=== PATIENT | female | born 1980 | race African-American/Black ===

== ENCOUNTER 2017-07-14 15:25 | Inpatient (IN) | payer BC ==
[2017-07-14] MEDS ORDERED: Ondansetron 4 MG/2 ML SDV IVPUSH PRN (15:27)
[2017-07-14] MEDS ORDERED: Sodium Chloride 0.9% 10 ML Syringe FLUSH PRN (15:27)
[2017-07-14] MEDS ORDERED: Nalbuphine 20 MG/1 ML Amp IVPUSH PRN (15:27)
[2017-07-14] MEDS ORDERED: Lidocaine 1% 50 ML MDV INJECT ONE (15:27)
[2017-07-14] MEDS ORDERED: Oxytocin/Lactated Ringers 10 UNIT/1,000 ML BAG IV SCH (15:30)
[2017-07-14] MEDS ORDERED: Lactated Ringers 1,000 ML IV SCH (15:30)
[2017-07-14] MEDS ORDERED: Lidocaine 1% 50 ML MDV ONE (16:10)
[2017-07-14] MEDS ORDERED: Lidocaine 1% 50 ML MDV INFILT STA (16:30)
--- NOTE | 2017-07-14 16:32 | PCM.LDHP ---
L&D History of Present Illness - General Date of Service: 07/14/17 Admit Problem/Dx: Patient Status Order with Admit Dx/Problem 07/14/17 15:27 Patient Status [ADT] Routine Admission Diagnosis/Problem Admission Diagnosis/Problem Normal labor Source of Information: Patient History Limitations: Reports: No Limitations - History of Present Illness Introduction:: Patient is a 36 y/o at 37 5/7 wks presents in labor. Was seen in clinic and found to be 7 cm. Sent immediately to L&D. Otherwise doing well. - Related Data Allergies/Adverse Reactions: Allergies Allergy/AdvReac Type Severity Reaction Status Date / Time clindamycin Allergy Diarrhea Verified 07/14/17 15:25 Past Medical History - Past Health History Medical/Surgical History: Denies Medical/Surgical History [employer] History: Reports: : 1 Para: 0 LMP (Approximate): Social & Family History - Tobacco Use Smoking Status *Q: Never Smoker - Alcohol Use Alcohol Use History: No - Recreational Drug Use Recreational Drug Use: No H&P Review of Systems - Review of Systems: Review Of Systems: See Below General: Reports: No Symptoms Pulmonary: Reports: No Symptoms Cardiovascular: Reports: No Symptoms Gastrointestinal: Reports: No Symptoms Genitourinary: Reports: No Symptoms Musculoskeletal: Reports: No Symptoms Psychiatric: Reports: No Symptoms Neurological: Reports: No Symptoms L&D Exam - Exam Exam: See Below - Vital Signs Weight: 68.674 kg - OB Specific Contraction Intensity: Strong Movement: Active Heart Tones: Present Heart Tones per Min: 150 Heart Rate (FHR) Variability: Moderate (6-25 bmp) Presentation: Vertex - Cruz Score Cruz Score Cervix Position: Anterior Cruz Score Consistency: Soft Cruz Score Effacement: >80% Cruz Score Dilation: > 5 cm Cruz Score Infant's Station: -1 ,0 Cruz Score Total: 12 - Exam General: Alert, Oriented, Cooperative Lungs: Clear to Auscultation, Normal Respiratory Effort Cardiovascular: Regular Rate, Regular Rhythm GI/Abdominal Exam: Soft, Non-Tender Genitourinary: Normal external exam Back Exam: Normal Inspection Extremities: Normal Inspection Skin: Warm, Dry, Intact - Patient Data Lab Results Last 24 hrs: Laboratory Results - last 24 hr 07/14/17 Range/Units 15:46 WBC 9.87 (3.98-10.04) K/mm3 RBC 5.65 H (3.98-5.22) M/mm3 Hgb 13.3 (11.2-15.7) gm/L Hct 41.6 (34.1-44.9) % MCV 73.6 L (79.4-94.8) fl MCH 23.5 L (25.6-32.2) pg MCHC 32.0 L (32.2-35.5) g/dl RDW Std Deviation 69.3 H (36.4-46.3) fL Plt Count 226 (182-369) K/mm3 MPV TNP Neut % (Auto) 78.6 H (34.0-71.1) % Lymph % (Auto) 14.5 L (19.3-51.7) % [place] % (Auto) 6.5 (4.7-12.5) % Eos % (Auto) 0 L (0.7-5.8) Baso % (Auto) 0.1 (0.1-1.2) % Neut # (Auto) 7.76 H (1.56-6.13) K/mm3 Lymph # (Auto) 1.43 (1.18-3.74) K/mm3 [place] # (Auto) 0.64 H (0.24-0.36) K/mm3 Eos # (Auto) 0.00 L (0.04-0.36) K/mm3 Baso # (Auto) 0.01 (0.01-0.08) K/mm3 Manual Slide Review Abnormal smear Result Diagrams: 07/14/17 15:46 - Problem List (1) 37 weeks gestation of SNOMED Code(s): 29771623 ICD Code: Z3A.37 - 37 WEEKS GESTATION OF Status: Acute Current Visit: Yes (2) Normal labor SNOMED Code(s): 09413951 ICD Code: O80 - ENCOUNTER FOR FULL-TERM UNCOMPLICATED DELIVERY; Z37.9 - OUTCOME OF DELIVERY, UNSPECIFIED Status: Acute Current Visit: Yes Problem List Initiated/Reviewed/Updated: Yes Orders Last 24hrs: Active Orders 24 hr Category Date Time Status Patient Status [ADT] Routine ADT 07/14/17 15:27 Active Activity as Tolerated [RC] PFP Care 07/14/17 15:27 Active Communication Order [RC] ASDIRECTED Care 07/14/17 15:27 Active Heart Tones [RC] ASDIRECTED Care 07/14/17 15:27 Active Notify Provider [RC] PFP Care 07/14/17 15:27 Active Notify Provider [RC] PRN Care 07/14/17 15:27 Active Peripheral IV Care [RC] . DIRECTED Care 07/14/17 15:27 Active Vital Signs [RC] PER UNIT ROUTINE Care 07/14/17 15:27 Active Regular Diet [DIET] Diet 07/14/17 Dinner Active Lactated Ringers [Ringers, Lactated] 1,000 ml Med 07/14/17 15:30 Active IV ASDIRECTED Lidocaine 1% [Xylocaine 1%] Med 07/14/17 16:30 Stat 50 ml INFILT NOW STA Nalbuphine [Nubain] Med 07/14/17 15:27 Active 10 mg IVPUSH Q2H PRN Ondansetron [Zofran] Med 07/14/17 15:27 Active 4 mg IVPUSH Q4H PRN Oxytocin/Lactated Ringers [Pitocin in LR 10 Units/1,000 Med 07/14/17 15:30 Active ML] 10 unit in 1,000 ml IV .CONTINUOUS Sodium Chloride 0.9% [Saline Flush] Med 07/14/17 15:27 Active 10 ml FLUSH ASDIRECTED PRN Electronic Heart Tones Ext w TOCO [WOMSER] Oth 07/14/17 15:27 Ordered Routine Electronic Heart Tones Internal [WOMSER] Per Unit Oth 07/14/17 15:27 Ordered Routine Peripheral IV Insertion Adult [OM.PC] Routine Oth 07/14/17 15:27 Ordered Resuscitation Status Routine Resus Stat 07/14/17 15:27 Ordered Medication Orders Lactated Ringer's (Ringers, Lactated) 1,000 mls @ 100 mls/hr IV ASDIRECTED KAILEY Oxytocin/Lactated Ringer's (Pitocin In Lr 10 Units/1,000 Ml) 10 unit in 1,000 mls @ 500 mls/hr IV .CONTINUOUS KAILEY Nalbuphine HCl (Nubain) 10 mg IVPUSH Q2H PRN PRN Reason: Pain (moderate 4-6) Ondansetron HCl (Zofran) 4 mg IVPUSH Q4H PRN PRN Reason: Nausea/Vomiting Sodium Chloride (Saline Flush) 10 ml FLUSH ASDIRECTED PRN PRN Reason: Keep Vein Open Assessment/Plan Comment:: 36 y/o at 37 5/7 wks presents in advanced labor * CBC and T&S * GBS negative * Anticipate
[2017-07-14] MEDS ORDERED: Benzocaine/Menthol 20%-0.5% Spray 56 GM Canister TOP PRN (16:45)
[2017-07-14] MEDS ORDERED: Docusate Sodium 100 MG Cap PO PRN (16:45)
[2017-07-14] MEDS ORDERED: Lanolin 100% Cream 7 GM Tube TOP PRN (16:45)
--- NOTE | 2017-07-14 16:50 | PCM.DEL ---
L & D Note - General Info Date of Service: 07/14/17 - Delivery Note Labor: Spontaneous Delivery Outcome: Livebirth Delivery Method: Spontaneous Vaginal Delivery-Single Delivery Mode: Vacuum Extraction Presentation: Right Occiput Anterior (DAHLIA) Nuchal Cord: None Anesthesia Type: None Amniotic Fluid Description: Clear Episiotomy Type: None Laceration: 2nd Degree, Perineal Suture type: Vicryl Suture size: 2-0 Placenta: Intact, Spontaneous Cord: 3 Vessels Estimated Blood Loss: 300 Resuscitation Needed: Yes : Suctioned, Bulb Syringe, Stimulated, Warmed, [place] Used, Warmer Used Score 1 min: 5 Score 5 min: 8 Delivery Comments (Free Text/Narrative):: Patient found to be complete with BOW protruding past vagina onto bed. ROM occurred and after this baby with FHR baseline shift from 135 into what was thought to be the 100's with decelerations into the 80's. She was encouraged to push, but was pushing ineffectively due to pain. Due to concern for prolonged time period with this lower baseline/decelerations decision made to proceed with VAVD. Sterile vaginal exam complete/complete/and scalp visible at introitus. head in DAHLIA presentation. Given concern for status the decision was made to proceed with vacuum assisted vaginal delivery. The mushroom cup was placed without difficulty with care to avoid the vaginal side wilson. Subsequent vacuum assisted vaginal delivery with pushing - applied for 1 minute and delivered over 1 contraction. Total pressure applied 550 mm Hg. Total pop offs 0. Suction was removed following delivery of the head. No nuchal cord. The remainder of the delivered without difficulty. The umbilical cord was clamped and cut and the infant was taken to warmer. Inspection of the perineum following delivery with findings of a 2nd degree laceration. This was repaired with a 2-0 vicryl in the typical fashion Vacuum Extractor Progress Note - Alternative Labor Strategies Considered Alternative Labor Strategies Considered:: Reports: Yes Indications Considered:: Reports: Yes Indications:: Reports: Suspicion of Immediate or Potential Compromise Time Out:: Reports: Yes - Patient Prepared Patient Prepared:: Reports: Yes Informed Consent:: Reports: Verbal Risks: Reports: Yes Risks Include:: Reports: Laceration, Shoulder Dystocia, Maternal Injury, Other Anesthesia/Analgesia Adequate:: Reports: No - Probability of Success High Probability of Success:: Reports: Yes Weight Estimated:: Reports: AGA Patient Diabetic:: Reports: No Pelvis Adequate:: Reports: No Asynclitic:: Reports: No - Application Time Maximum Application Time & Number of Pop-Offs Predetermined:: Reports: Yes Maximum Pressure Maintained in [place] (cm Hg):: 550 Total Application Time (min): *max=20min: 1 Number of Times Cup Disengaged:: 0 Type of Vacuum Used:: Reports: Cup: Mushroom type Vacuum Extraction: Successful - Exit Strategy Exit strategy available:: Reports: Yes and resuscitation teams readily available:: Reports: Yes - Patient Data Weight - Most Recent: 68.674 kg Lab Results Last 24 Hours: Laboratory Results - last 24 hr 07/14/17 Range/Units 15:46 WBC 9.87 (3.98-10.04) K/mm3 RBC 5.65 H (3.98-5.22) M/mm3 Hgb 13.3 (11.2-15.7) gm/L Hct 41.6 (34.1-44.9) % MCV 73.6 L (79.4-94.8) fl MCH 23.5 L (25.6-32.2) pg MCHC 32.0 L (32.2-35.5) g/dl RDW Std Deviation 69.3 H (36.4-46.3) fL Plt Count 226 (182-369) K/mm3 MPV TNP Neut % (Auto) 78.6 H (34.0-71.1) % Lymph % (Auto) 14.5 L (19.3-51.7) % [place] % (Auto) 6.5 (4.7-12.5) % Eos % (Auto) 0 L (0.7-5.8) Baso % (Auto) 0.1 (0.1-1.2) % Neut # (Auto) 7.76 H (1.56-6.13) K/mm3 Lymph # (Auto) 1.43 (1.18-3.74) K/mm3 [place] # (Auto) 0.64 H (0.24-0.36) K/mm3 Eos # (Auto) 0.00 L (0.04-0.36) K/mm3 Baso # (Auto) 0.01 (0.01-0.08) K/mm3 Manual Slide Review Abnormal smear Med Orders - Current: Current Medications Lactated Ringer's (Ringers, Lactated) 1,000 mls @ 100 mls/hr IV ASDIRECTED KAILEY Last Admin: 07/14/17 15:50 Dose: 100 mls/hr Oxytocin/Lactated Ringer's (Pitocin In Lr 10 Units/1,000 Ml) 10 unit in 1,000 mls @ 500 mls/hr IV .CONTINUOUS KAILEY Last Admin: 07/14/17 16:43 Dose: 500 mls/hr Nalbuphine HCl (Nubain) 10 mg IVPUSH Q2H PRN PRN Reason: Pain (moderate 4-6) Ondansetron HCl (Zofran) 4 mg IVPUSH Q4H PRN PRN Reason: Nausea/Vomiting Sodium Chloride (Saline Flush) 10 ml FLUSH ASDIRECTED PRN PRN Reason: Keep Vein Open Discontinued Medications Lidocaine HCl (Xylocaine 1%) 50 ml INJECT ONETIME ONE Stop: 07/14/17 15:28 Last Admin: 07/14/17 16:44 Dose: 50 ml Lidocaine HCl (Xylocaine 1%) Confirm Administered Dose 50 ml .ROUTE .STK-MED ONE Stop: 07/14/17 16:11 Lidocaine HCl (Xylocaine 1%) 50 ml INFILT NOW STA Stop: 07/14/17 16:31 - Problem List & Annotations (1) 37 weeks gestation of SNOMED Code(s): 08673268 Code(s): Z3A.37 - 37 WEEKS GESTATION OF Status: Acute Current Visit: Yes (2) Normal labor SNOMED Code(s): 78168055 Code(s): O80 - ENCOUNTER FOR FULL-TERM UNCOMPLICATED DELIVERY; Z37.9 - OUTCOME OF DELIVERY, UNSPECIFIED Status: Acute Current Visit: Yes (3) Vacuum extractor delivery, delivered SNOMED Code(s): 336294773 Code(s): O66.5 - ATTEMPTED APPLICATION OF VACUUM EXTRACTOR AND FORCEPS Status: Acute Current Visit: Yes - Problem List Review Problem List Initiated/Reviewed/Updated: Yes - My Orders Last 24 Hours: My Active Orders 07/14/17 15:27 Patient Status [ADT] Routine Activity as Tolerated [RC] PFP Communication Order [RC] ASDIRECTED Heart Tones [RC] ASDIRECTED Notify Provider [RC] PFP Notify Provider [RC] PRN Peripheral IV Care [RC] . DIRECTED Vital Signs [RC] PER UNIT ROUTINE Nalbuphine [Nubain] 10 mg IVPUSH Q2H PRN Ondansetron [Zofran] 4 mg IVPUSH Q4H PRN Sodium Chloride 0.9% [Saline Flush] 10 ml FLUSH ASDIRECTED PRN Electronic Heart Tones Ext w TOCO [WOMSER] Routine Electronic Heart Tones Internal [WOMSER] Per Unit Routine Peripheral IV Insertion Adult [OM.PC] Routine Resuscitation Status Routine 07/14/17 15:30 Lactated Ringers [Ringers, Lactated] 1,000 ml IV ASDIRECTED Oxytocin/Lactated Ringers [Pitocin in LR 10 Units/1,000 ML] 10 unit in 1,000 ml IV .CONTINUOUS 07/14/17 16:40 Patient Status Manage Transfer [TRANSFER] Routine 07/14/17 Dinner Regular Diet [DIET] - Assessment Assessment:: 36 y/o G1 now P1001 PPD#0 from VAVD at 37 5/7 wks - Plan Plan:: * Routine cares * Encourage breast feeding * Discharge home in 1-2 days
[2017-07-14] MEDS: Ibuprofen 600 MG Tab PO PRN (16:56)
[2017-07-14] MEDS: Witch Hazel Medicated Pads 100/Jar TOP PRN (16:57)
[2017-07-14] MEDS: Acetaminophen 325 MG Tab PO PRN (21:31)
[2017-07-15] MEDS: Ibuprofen 600 MG Tab PO PRN ×3 (03:49→18:10)
--- NOTE | 2017-07-15 07:55 | PCM.PNPP ---
- General Info Date of Service: 07/15/17 Functional Status: Reports: Pain Controlled, Tolerating Diet, Ambulating, Urinating - Review of Systems General: Reports: No Symptoms Pulmonary: Reports: No Symptoms Cardiovascular: Reports: No Symptoms Gastrointestinal: Reports: No Symptoms Genitourinary: Reports: No Symptoms Musculoskeletal: Reports: No Symptoms - Patient Data Vital Signs - Most Recent: Last Vital Signs Temp 36.7 C 07/15/17 04:00 Pulse 78 07/15/17 03:34 Resp 20 07/15/17 03:34 BP 118/53 L 07/15/17 03:34 Pulse Ox 99 07/15/17 03:34 Weight - Most Recent: 68.674 kg I&O - Last 24 Hours: Intake & Output 07/14/17 07/15/17 07/15/17 22:59 06:59 14:59 Intake Total 120 Balance 120 Lab Results - Last 24 Hours: Laboratory Results - last 24 hr 07/14/17 Range/Units 15:46 WBC 9.87 (3.98-10.04) K/mm3 RBC 5.65 H (3.98-5.22) M/mm3 Hgb 13.3 (11.2-15.7) gm/L Hct 41.6 (34.1-44.9) % MCV 73.6 L (79.4-94.8) fl MCH 23.5 L (25.6-32.2) pg MCHC 32.0 L (32.2-35.5) g/dl RDW Std Deviation 69.3 H (36.4-46.3) fL Plt Count 226 (182-369) K/mm3 MPV TNP Neut % (Auto) 78.6 H (34.0-71.1) % Lymph % (Auto) 14.5 L (19.3-51.7) % [place] % (Auto) 6.5 (4.7-12.5) % Eos % (Auto) 0 L (0.7-5.8) Baso % (Auto) 0.1 (0.1-1.2) % Neut # (Auto) 7.76 H (1.56-6.13) K/mm3 Lymph # (Auto) 1.43 (1.18-3.74) K/mm3 [place] # (Auto) 0.64 H (0.24-0.36) K/mm3 Eos # (Auto) 0.00 L (0.04-0.36) K/mm3 Baso # (Auto) 0.01 (0.01-0.08) K/mm3 Manual Slide Review Abnormal smear Med Orders - Current: Current Medications Acetaminophen (Tylenol) 650 mg PO Q4H PRN PRN Reason: mild pain or fever Last Admin: 07/14/17 21:31 Dose: 650 mg Benzocaine/Menthol (Dermoplast Pain Relief [place]) 0 gm TOP ASDIRECTED PRN PRN Reason: Perineal Comfort Measure Last Admin: 07/14/17 16:58 Dose: 1 spray Docusate Sodium (Colace) 100 mg PO BID PRN PRN Reason: Constipation Emollient Ointment (Lansinoh Hpa) 0 gm TOP ASDIRECTED PRN PRN Reason: Sore Nipples Ibuprofen (Motrin) 600 mg PO Q6H PRN PRN Reason: Mild pain or fever Last Admin: 07/15/17 03:49 Dose: 600 mg Witch Jaelyn (Tucks) 1 pad TOP ASDIRECTED PRN PRN Reason: Hemorrhoid pain Last Admin: 07/14/17 16:57 Dose: 1 pad Discontinued Medications Lactated Ringer's (Ringers, Lactated) 1,000 mls @ 100 mls/hr IV ASDIRECTED KAILEY Last Admin: 07/14/17 15:50 Dose: 100 mls/hr Oxytocin/Lactated Ringer's (Pitocin In Lr 10 Units/1,000 Ml) 10 unit in 1,000 mls @ 500 mls/hr IV .CONTINUOUS KAILEY Last Admin: 07/14/17 16:43 Dose: 500 mls/hr Lidocaine HCl (Xylocaine 1%) 50 ml INJECT ONETIME ONE Stop: 07/14/17 15:28 Last Admin: 07/14/17 16:44 Dose: 50 ml Lidocaine HCl (Xylocaine 1%) Confirm Administered Dose 50 ml .ROUTE .STK-MED ONE Stop: 07/14/17 16:11 Last Admin: 07/14/17 16:15 Dose: 50 ml Lidocaine HCl (Xylocaine 1%) 50 ml INFILT NOW STA Stop: 07/14/17 16:31 Last Admin: 07/15/17 05:36 Dose: Not Given Nalbuphine HCl (Nubain) 10 mg IVPUSH Q2H PRN PRN Reason: Pain (moderate 4-6) Ondansetron HCl (Zofran) 4 mg IVPUSH Q4H PRN PRN Reason: Nausea/Vomiting Sodium Chloride (Saline Flush) 10 ml FLUSH ASDIRECTED PRN PRN Reason: Keep Vein Open - Infant Interaction Infant Disposition, : in Room with Family Interaction: Holding Infant Feeding: Attempted ; Nursed Fair/Poor - Recovery Exam Fundal Tone: Firm Fundal Level: At Umbilicus Fundal Placement: Midline Lochia Amount: Small Lochia Color: Rubra/Red Perineum Description: Other (see below) Other Perinuem Description: 2 degree with repair Episiotomy/Laceration: Approximated Bladder Status: Voiding Urinary Elimination: Voided - Exam General: Alert, Oriented, Cooperative GI/Abdominal Exam: Soft, Non-Tender Extremities: Normal Inspection Skin: Warm, Dry, Intact - Problem List & Annotations (1) 37 weeks gestation of SNOMED Code(s): 03338978 Code(s): Z3A.37 - 37 WEEKS GESTATION OF Status: Acute Current Visit: Yes (2) Normal labor SNOMED Code(s): 77993996 Code(s): O80 - ENCOUNTER FOR FULL-TERM UNCOMPLICATED DELIVERY; Z37.9 - OUTCOME OF DELIVERY, UNSPECIFIED Status: Acute Current Visit: Yes (3) Vacuum extractor delivery, delivered SNOMED Code(s): 051485375 Code(s): O66.5 - ATTEMPTED APPLICATION OF VACUUM EXTRACTOR AND FORCEPS Status: Acute Current Visit: Yes - Problem List Review Problem List Initiated/Reviewed/Updated: Yes - My Orders Last 24 Hours: My Active Orders 07/14/17 15:27 Heart Tones [RC] ASDIRECTED Peripheral IV Care [RC] . DIRECTED Vital Signs [RC] PER UNIT ROUTINE Resuscitation Status Routine 07/14/17 16:45 Activity as Tolerated [RC] PER UNIT ROUTINE Vital Signs [RC] 04,12,20 Acetaminophen [Tylenol] 650 mg PO Q4H PRN Benzocaine/Menthol [Dermoplast Pain Relief [place]] See Dose Instructions TOP ASDIRECTED PRN Docusate Sodium [Colace] 100 mg PO BID PRN Ibuprofen [Motrin] 600 mg PO Q6H PRN Lanolin [Lansinoh HPA] See Dose Instructions TOP ASDIRECTED PRN Omar Christy [Tucks] 1 pad TOP ASDIRECTED PRN Assess Lochia [WOMSER] Per Unit Routine Assess Uterine Involution [WOMSER] Per Unit Routine Breast Pump [WOMSER] Per Unit Routine Heat Therapy [OM.PC] PRN Ice Therapy [OM.PC] Per Unit Routine Perineal Care [OM.PC] Per Unit Routine Peripheral IV Discontinue [OM.PC] Routine Sitz Bath [OM.PC] Per Unit Routine 07/14/17 Dinner Regular Diet [DIET] 07/15/17 16:45 Heat Therapy [OM.PC] PRN - Assessment Assessment:: 36 y/o G1 now P1001 PPD#1 from VAVD at 37 5/7 wks - Plan Plan:: * Routine cares * Encourage breast feeding * Patient interested in discharge home today. Will see how day goes and potentially discharge later this PM vs tomorrow
[2017-07-15] MEDS: Witch Hazel Medicated Pads 100/Jar TOP PRN (23:18)
[2017-07-15] MEDS: Acetaminophen 325 MG Tab PO PRN (23:18)
--- NOTE | 2017-07-16 07:15 | PCM.DCSUM1 ---
Discharge Summary - Hospital Course Free Text/Narrative:: Juliann is a 36-year-old 1 para 1001 -[place] female who was admitted on 07/14/2017 in active labor. She delivered via vacuum extraction delivery and had a male infant named Cooper. Apgars were 5 and 8. Vacuum extraction done for heart rate deceleration and ineffective pushing due to pain of labor. She had a second-degree perineal laceration which was repaired in routine fashion. Estimated blood loss was 300 mL's. she has done well. Her vital signs stable. Lochia is minimal. She is nursing with some difficulty. She is ambulating well and has no concerns. She is desiring discharge home. - Discharge Data Discharge Date: 07/16/17 Discharge Disposition: Home, Self-Care 01 Condition: Good - Patient Summary/Data Consults: Consultations 07/15/17 14:54 Consult to Environmental Planning Engineer [CONS] Routine - Patient Instructions Diet: Regular Diet as Tolerated Activity: As Tolerated Activity, Other: Pelvic Rest for 6 weeks Driving: May Drive Today Showering/Bathing: May Shower Showering/Bathing, Other: May Bathe Notify Provider of: Fever, Increased Pain, Swelling and Redness, Drainage, Nausea and/or Vomiting - Discharge Plan Home Medications: Home Meds Docusate Sodium [Colace] 100 mg PO BID PRN cap 07/15/17 [Rx] Ibuprofen [IJD: Ibuprofen] 600 mg PO Q6H PRN tablet 07/15/17 [Rx] Referrals: Em Borja MD [Primary Care Provider] - (3 weeks for check ) - Discharge Summary/Plan Comment DC Time >30 min.: No Discharge Summary/Plan Comment: Discharge instructions: 1. Discharge home 2. Diet, activity and follow-up discussed with patient. Recommend nursing diet with increased calories and calcium. 3. Precautions given concern increased pain, bleeding, temperature, signs/ symptoms of DVT/PE. 4. Medications per home medication was printed, discussed with and given to the patient. 5. Return to clinic-Dr. Borja at [facility] in 3 weeks. Diagnosis: Term -delivered Condition: Good - Patient Data Vitals - Most Recent: Last Vital Signs Temp 36.6 C 07/16/17 03:20 Pulse 67 07/16/17 03:20 Resp 15 07/16/17 03:20 BP 115/69 07/16/17 03:20 Pulse Ox 100 07/16/17 03:20 Weight - Most Recent: 68.674 kg Med Orders - Current: Current Medications Acetaminophen (Tylenol) 650 mg PO Q4H PRN PRN Reason: mild pain or fever Last Admin: 07/15/17 23:18 Dose: 650 mg Benzocaine/Menthol (Dermoplast Pain Relief [place]) 0 gm TOP ASDIRECTED PRN PRN Reason: Perineal Comfort Measure Last Admin: 07/14/17 16:58 Dose: 1 spray Docusate Sodium (Colace) 100 mg PO BID PRN PRN Reason: Constipation Emollient Ointment (Lansinoh Hpa) 0 gm TOP ASDIRECTED PRN PRN Reason: Sore Nipples Last Admin: 07/15/17 22:07 Dose: 1 tube Ibuprofen (Motrin) 600 mg PO Q6H PRN PRN Reason: Mild pain or fever Last Admin: 07/15/17 18:10 Dose: 600 mg Witch Jaelyn (Tucks) 1 pad TOP ASDIRECTED PRN PRN Reason: Hemorrhoid pain Last Admin: 07/15/17 23:18 Dose: 1 jar Discontinued Medications Lactated Ringer's (Ringers, Lactated) 1,000 mls @ 100 mls/hr IV ASDIRECTED KAILEY Last Admin: 07/14/17 15:50 Dose: 100 mls/hr Oxytocin/Lactated Ringer's (Pitocin In Lr 10 Units/1,000 Ml) 10 unit in 1,000 mls @ 500 mls/hr IV .CONTINUOUS KAILEY Last Admin: 07/14/17 16:43 Dose: 500 mls/hr Lidocaine HCl (Xylocaine 1%) 50 ml INJECT ONETIME ONE Stop: 07/14/17 15:28 Last Admin: 07/14/17 16:44 Dose: 50 ml Lidocaine HCl (Xylocaine 1%) Confirm Administered Dose 50 ml .ROUTE .STK-MED ONE Stop: 07/14/17 16:11 Last Admin: 07/14/17 16:15 Dose: 50 ml Lidocaine HCl (Xylocaine 1%) 50 ml INFILT NOW STA Stop: 07/14/17 16:31 Last Admin: 07/15/17 05:36 Dose: Not Given Nalbuphine HCl (Nubain) 10 mg IVPUSH Q2H PRN PRN Reason: Pain (moderate 4-6) Ondansetron HCl (Zofran) 4 mg IVPUSH Q4H PRN PRN Reason: Nausea/Vomiting Sodium Chloride (Saline Flush) 10 ml FLUSH ASDIRECTED PRN PRN Reason: Keep Vein Open
== END 2017-07-16 14:15 | disposition home or self-care (01) | DRG 560 ==
LOC: JD.OB 15:25 → JD.OBCHECK 15:25 → JD.OB 15:54 → OBSVTOIN 16:08 → JD.OB 16:09
PROVIDERS: ADMIT Obstetrics & Gynecology; ATTEND Obstetrics & Gynecology
PROC: 10D07Z6 Extraction of Products of Conception, Vacuum, Via Natural or Artificial Opening (ICD-10-PCS; principal; 2017-07-14)
PROC: 0KQM0ZZ Repair Perineum Muscle, Open Approach (ICD-10-PCS; 2017-07-14)
DX: O76 Abnormality in fetal heart rate and rhythm complicating labor and delivery (principal); Z3A.37 37 weeks gestation of pregnancy; Z37.0 Single live birth; O70.1 Second degree perineal laceration during delivery
CPT/HCPCS: 36415; 59300; 59409; 85025; A9270-GY; J2590; J7120